=== PATIENT | female | born 2000 | race African-American/Black ===

== ENCOUNTER 2018-07-25 10:48 | Emergency (ER) | payer OTHER ==
[2018-07-25 11:30] LABS: KETONE, URINE AUTO RFX TRACE mg/dL (NEGATIVE); LEUKOCYTE ESTERASE UR AUTO RFX NEGATIVE (NEGATIVE); MUCUS, URINE RFX LARGE (NEGATIVE); NITRITE, URINE AUTO RFX NEGATIVE (NEGATIVE); RBC, URINE AUTO RFX 5 /HPF (0-3); SPECIFIC GRAVITY UR AUTO RFX 1.024 (1.002-1.035); SQUAM EPITHELIAL CELL UR AURFX 10 /HPF (0-6); WBC, URINE AUTO RFX 3 /HPF (0-3)
[2018-07-25] MEDS: AZITHROMYCIN 250 MG TAB PO (13:45)
[2018-07-25] MEDS: cefTRIAXone SOD 250 MG VIAL (J0696) IM (13:45)
[2018-07-25 16:05] LABS: CHLAMYDIA DNA AMPLIFICATION NEGATIVE (NEGATIVE); GC DNA AMPLIFICATION NEGATIVE (NEGATIVE)
== END 2018-07-25 14:00 | disposition home or self-care (01) ==
LOC: M ED 10:48
DX: A60.00 Herpesviral infection of urogenital system, unspecified (principal)
CPT/HCPCS: J0696